=== PATIENT | female | born 2000 | race Hispanic/Latino ===

== ENCOUNTER 2020-03-01 17:05 | Emergency (ER) | payer SELFPAY ==
[2020-03-01 17:19] VITALS: BP 132/94
[2020-03-01 17:29] LABS: Basophils # (Auto) 0.1 K/mm3 (0.0-0.1); Basophils % (Auto) 0.7 % (0.0-1.8); Eosinophils # (Auto) 0.1 K/mm3 (0.0-0.4); Eosinophils % (Auto) 0.5 % (0.0-4.3); Hematocrit 48.4 % (30.3-42.9); Hemoglobin 16.2 gm/dl (10.1-14.3); Lymphocytes # (Auto) 1.5 K/mm3 (1.2-5.4); Lymphocytes % (Auto) 13.1 % (13.4-35.0); Mean Corpuscular HGB Conc 34 % (30-34); Mean Corpuscular Volume 86 fl (79-97); Monocytes # (Auto) 0.8 K/mm3 (0.0-0.8); Monocytes % (Auto) 7.1 % (0.0-7.3); Platelet Count 248 K/mm3 (140-440); Red Blood Count 5.66 M/mm3 (3.65-5.03); Red Cell Distribution Width 14.2 % (13.2-15.2)
[2020-03-01 17:50] LABS: Alanine Aminotransferase 6 units/L (7-56); BUN/Creatinine Ratio 16; Blood Urea Nitrogen 13 mg/dL (7-17); Calcium 9.7 mg/dL (8.4-10.2); Hemolysis Index 10
[2020-03-01 18:00] LABS: Bacteria,Urine 1+ /HPF (Negative); Bilirubin,Urine NEG (Negative); Blood,Urine NEG (Negative); Color,Urine Yellow (Yellow); Mucus,Urine 2+ /HPF; Urobilinogen,Urine < 2.0 mg/dL (<2.0)
[2020-03-01] MEDS ORDERED: traMADol 50 MG TAB PO ONE (18:46)
[2020-03-01] MEDS ORDERED: METOCLOPRAMIDE 10 MG TAB PO ONE (18:47)
--- NOTE | 2020-03-01 19:02 | Emergency Department Report ---
ED Female HPI - General Chief complaint: Abdominal Pain Stated complaint: ABD PAIN Time Seen by Provider: 03/01/20 18:40 Source: patient Mode of arrival: Ambulatory Limitations: No Limitations - History of Present Illness Initial comments: This is a 19-year-old female with past medical history of PCOS and endometriosis who presents to the ED complaining of pelvic pain that is been going on for about a week. Patient states she is been seen by to ER and was last seen on Saturday. Patient states she got ultrasound and was told that she did not have any acute findings. She states that she was sent to [facility] which is not helping with her pain. Patient states she does have a [facility] doctor but does not have an appointment till next week and is experiencing pain. Patient also states that she is experiencing some nausea with mild vomiting intermittently. Patient denies fever/chills/vaginal bleeding, vaginal discharge or vaginal pain or any lesions. MD Complaint: pelvic pain Are you Now?: No - Related Data Previous Rx's Medication Instructions Recorded Last Taken Type Acetaminophen/Codeine [Tylenol 1 tab PO Q6H #12 tab 03/01/20 Unknown Rx /Codeine # 3 tab] Ondansetron [Zofran ODT TAB] 8 mg PO Q12HR #30 tab.rapdis 03/01/20 Unknown Rx Allergies Allergy/AdvReac Type Severity Reaction Status Date / Time No Known Allergies Allergy Verified 03/01/20 17:13 ED Review of Systems ROS: Stated complaint: ABD PAIN Other details as noted in HPI Comment: All other systems reviewed and negative ED Past Medical Hx - Past Medical History Previous Medical History?: Yes Additional medical history: PCOS - Surgical History Past Surgical History?: No - Social History Smoking Status: Current Every Day Smoker Substance Use Type: Marijuana - Medications Home Medications: Home Medications Medication Instructions Recorded Confirmed Last Taken Type Acetaminophen/Codeine [Tylenol 1 tab PO Q6H #12 tab 03/01/20 Unknown Rx /Codeine # 3 tab] Ondansetron [Zofran ODT TAB] 8 mg PO Q12HR #30 tab.rapdis 03/01/20 Unknown Rx ED Physical Exam - General Limitations: No Limitations General appearance: alert, in no apparent distress - Head Head exam: Present: atraumatic, normocephalic - Eye Eye exam: Present: normal appearance - ENT ENT exam: Present: mucous membranes moist - Neck Neck exam: Present: normal inspection - Respiratory Respiratory exam: Present: normal lung sounds bilaterally. Absent: respiratory distress - Cardiovascular Cardiovascular Exam: Present: regular rate, normal rhythm. Absent: systolic murmur, diastolic murmur, rubs, gallop - GI/Abdominal GI/Abdominal exam: Present: soft, normal bowel sounds. Absent: distended, tenderness, guarding, mass - Extremities Exam Extremities exam: Present: normal inspection - Back Exam Back exam: Present: normal inspection - Neurological Exam Neurological exam: Present: alert, oriented X3 - Psychiatric Psychiatric exam: Present: normal affect, normal mood - Skin Skin exam: Present: warm, dry, intact, normal color. Absent: rash ED Course Vital Signs 03/01/20 03/01/20 03/01/20 17:16 18:18 21:10 Temperature 98.0 F Pulse Rate 100 H 98 H Respiratory 18 19 16 Rate Blood Pressure 132/94 O2 Sat by Pulse 99 94 Oximetry ED Medical Decision Making - Lab Data Result diagrams: 03/01/20 17:19 03/01/20 17:19 Laboratory Last Values WBC 11.8 K/mm3 (4.5-11.0) H 03/01/20 17:19 RBC 5.66 M/mm3 (3.65-5.03) H 03/01/20 17:19 Hgb 16.2 gm/dl (10.1-14.3) H 03/01/20 17:19 Hct 48.4 % (30.3-42.9) H 03/01/20 17:19 MCV 86 fl (79-97) 03/01/20 17:19 MCH 29 pg (28-32) 03/01/20 17:19 MCHC 34 % (30-34) 03/01/20 17:19 RDW 14.2 % (13.2-15.2) 03/01/20 17:19 Plt Count 248 K/mm3 (140-440) 03/01/20 17:19 Lymph % (Auto) 13.1 % (13.4-35.0) L 03/01/20 17:19 [place] % (Auto) 7.1 % (0.0-7.3) 03/01/20 17:19 Eos % (Auto) 0.5 % (0.0-4.3) 03/01/20 17:19 Baso % (Auto) 0.7 % (0.0-1.8) 03/01/20 17:19 Lymph # 1.5 K/mm3 (1.2-5.4) 03/01/20 17:19 [place] # 0.8 K/mm3 (0.0-0.8) 03/01/20 17:19 Eos # 0.1 K/mm3 (0.0-0.4) 03/01/20 17:19 Baso # 0.1 K/mm3 (0.0-0.1) 03/01/20 17:19 Seg Neutrophils % 78.6 % (40.0-70.0) H 03/01/20 17:19 Seg Neutrophils # 9.3 K/mm3 (1.8-7.7) H 03/01/20 17:19 Sodium 135 mmol/L (137-145) L 03/01/20 17:19 Potassium 3.8 mmol/L (3.6-5.0) 03/01/20 17:19 Chloride 97.9 mmol/L (98-107) L 03/01/20 17:19 Carbon Dioxide 11 mmol/L (22-30) L 03/01/20 17:19 Anion Gap 30 mmol/L 03/01/20 17:19 BUN 13 mg/dL (7-17) 03/01/20 17:19 Creatinine 0.8 mg/dL (0.7-1.2) 03/01/20 17:19 Estimated GFR > 60 ml/min 03/01/20 17:19 BUN/Creatinine Ratio 16 % 03/01/20 17:19 Glucose 97 mg/dL (65-100) 03/01/20 17:19 Calcium 9.7 mg/dL (8.4-10.2) 03/01/20 17:19 Total Bilirubin 0.50 mg/dL (0.1-1.2) 03/01/20 17:19 AST 12 units/L (5-40) 03/01/20 17:19 ALT 6 units/L (7-56) L 03/01/20 17:19 Alkaline Phosphatase 57 units/L (35-129) 03/01/20 17:19 Total Protein 8.4 g/dL (6.3-8.2) H 03/01/20 17:19 Albumin 5.0 g/dL (3.9-5) 03/01/20 17:19 Albumin/Globulin Ratio 1.5 % 03/01/20 17:19 HCG, Qual Negative (Negative) 03/01/20 17:19 Urine Color Yellow (Yellow) 03/01/20 17:34 Urine Turbidity Clear (Clear) 03/01/20 17:34 Urine pH 5.0 (5.0-7.0) 03/01/20 17:34 Ur Specific [facility] 1.033 (1.003-1.030) H 03/01/20 17:34 Urine Protein 100 mg/dl mg/dL (Negative) 03/01/20 17:34 Urine Glucose (UA) Neg mg/dL (Negative) 03/01/20 17:34 Urine Ketones 80 mg/dL (Negative) 03/01/20 17:34 Urine Blood Neg (Negative) 03/01/20 17:34 Urine Nitrite Neg (Negative) 03/01/20 17:34 Urine Bilirubin Neg (Negative) 03/01/20 17:34 Urine Urobilinogen < 2.0 mg/dL (<2.0) 03/01/20 17:34 Ur Leukocyte Esterase Neg (Negative) 03/01/20 17:34 Urine WBC (Auto) 6.0 /HPF (0.0-6.0) 03/01/20 17:34 Urine RBC (Auto) 5.0 /HPF (0.0-6.0) 03/01/20 17:34 U Epithel Cells (Auto) 3.0 /HPF (0-13.0) 03/01/20 17:34 Urine Bacteria (Auto) 1+ /HPF (Negative) 03/01/20 17:34 Urine Mucus 2+ /HPF 03/01/20 17:34 - Medical Decision Making 19-year-old female presents with pelvic pain All labs are within normal limits. Urinalysis negative, urine test negative. Patient received a liter of fluids and meds in the ED for pain and nausea. I discussed with patient that other than treating her pain due to her long history of endometriosis patient will have to follow-up with her [facility] doctor. Patient was nontender to palpation to the pelvic or abdomen region. Patient pain was controlled. Patient was lying comfortably in the ED bed prior to discharge. Discussed with patient to follow-up with [facility] doctor and take medication as prescribed. Vital signs are normal patient is in no acute distress Critical care attestation.: If time is entered above; I have spent that time in minutes in the direct care of this critically ill patient, excluding procedure time. ED Disposition Clinical Impression: Pelvic pain, Endometriosis, PCOS (polycystic ovarian syndrome) Disposition: TO HOME OR SELFCARE Is pt being admited?: No Does the pt Need Aspirin: No Condition: Stable Instructions: Endometriosis (ED), Polycystic Ovarian Syndrome (ED), Abdominal Pain (ED) Additional Instructions: Make sure to follow up with the primary care physician as discussed. Take all your medications as you've been prescribed. If you have any worsening symptoms or develop new symptoms please return to ED immediately. Prescriptions: Acetaminophen/Codeine [Tylenol /Codeine # 3 tab] 1 tab PO Q6H #12 tab Ondansetron [Zofran ODT TAB] 8 mg PO Q12HR #30 tab.rapdis Referrals: PRIMARY CARE, [Primary Care Provider] - 3-5 Days [facility] [Provider Group] - 3-5 Days [facility] [Provider Group] - 3-5 Days [facility] [Provider Group] - 3-5 Days Forms: Accompanied Note, Work/School Release Form(ED) Time of Disposition: 21:03
[2020-03-01] MEDS ORDERED: ONDANSETRON 4 MG/2 ML INJ IV ONE (19:42)
[2020-03-01] MEDS ORDERED: KETOROLAC 30 MG/1 ML INJ IV ONE (19:42)
[2020-03-01] MEDS ORDERED: SODIUM CHLORIDE 0.9% 1000 ML 1,000 ML IV ONE (19:42)
[2020-03-01] MEDS ORDERED: diphenhydrAMINE 50 MG/ML VIAL IV ONE (19:42)
== END 2020-03-01 21:10 | disposition home or self-care (01) ==
LOC: ED 17:05
DX: E28.2 Polycystic ovarian syndrome (principal); R10.2 Pelvic and perineal pain; N80.9 Endometriosis, unspecified; R11.2 Nausea with vomiting, unspecified; F17.200 Nicotine dependence, unspecified, uncomplicated; F12.90 Cannabis use, unspecified, uncomplicated; Z79.899 Other long term (current) drug therapy
CPT/HCPCS: 36415; 80053; 81001; 84703; 85025; 96361; 96374; 96375; 99283; J1200; J1885; J2405; J7030